=== PATIENT | female | born 1980 | race Caucasian/White ===

== ENCOUNTER 2016-02-24 15:19 | Inpatient (IN) | payer OTHER ==
[~2016-02-24] VITALS: Ht 157.5 cm; Wt 83.4 kg
[2016-02-24] MEDS ORDERED: OLANZapine IM 10 MG VIAL IM ONE (18:45)
[2016-02-24] MEDS ORDERED: MAGNESIUM HYDROXIDE SUSP 30 ML CUP PO PRN (19:00)
[2016-02-24] MEDS ORDERED: LORazepam 1 MG TAB PO PRN (19:00)
[2016-02-24] MEDS ORDERED: LORazepam 2 MG/ML VIAL IM PRN (19:00)
[2016-02-24] MEDS ORDERED: ALUMINUM/MAGNESIUM/SIMETH 30 ML CUP PO PRN (19:00)
[2016-02-24] MEDS ORDERED: ACETAMINOPHEN 325 MG TAB PO PRN (19:00)
[2016-02-25 06:01] VITALS: BP 137/82; PULSE 111; RESP 16; TEMP 97.9; O2SAT 97
[2016-02-25] MEDS: REMOVE OLD NICOTINE PATCH T-DERMAL SCH ×2 (09:00→09:10)
[2016-02-25] MEDS: NICOTINE 21 MG/24 HR PATCH T-DERMAL SCH ×2 (09:00→09:10)
[2016-02-25 15:45] VITALS: BP 126/79; PULSE 112; RESP 16; TEMP 97.2; O2SAT 98
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
[2016-02-25 18:00] VITALS: BP 126/75; PULSE 83; RESP 18; TEMP 98.3; O2SAT 99
[2016-02-25 20:00] VITALS: BP 126/75; PULSE 83; RESP 18; TEMP 97.3
[2016-02-25] MEDS: OLANZapine ODT 5 MG TAB PO SCH (20:36)
[2016-02-26 06:09] VITALS: BP 120/81; PULSE 90; RESP 16; TEMP 97.3
[2016-02-26 07:18] LABS: AUTOMATED NEUTROPHIL # 5.1 TH/MM3 (1.8-7.7); BASOPHIL % 0.6 % (0.0-2.0); EOSINOPHIL % 0.4 % (0.0-4.0); HEMATOCRIT 42.4 % (35.0-46.0); HEMO FLAGS DIFF FINAL; LYMPH % 25.3 % (9.0-44.0); MEAN CELL VOLUME 84.2 FL (80.0-100.0); MEAN CORPUSCULAR HGB CONC 34.4 % (32.0-36.0); MONO % 9.3 % (0.0-8.0); NEUT % 64.4 % (16.0-70.0); PLATELET COUNT 264 TH/MM3 (150-450); RED BLOOD COUNT 5.04 MIL/MM3 (4.00-5.30)
[2016-02-26 07:50] LABS: ALKALINE PHOSPHATASE 84 U/L (45-117); ALT (GPT) 37 U/L (10-53); ANION GAP 10 MEQ/L (5-15); AST (GOT) 7 U/L (15-37); BICARBONATE 24.8 MEQ/L (21.0-32.0); BLOOD UREA NITROGEN 9 MG/DL (7-18); CHLORIDE 106 MEQ/L (98-107); GLOMERULAR FILTRATION RATE 87 ML/MIN (>89); HDL CHOLESTEROL 58.6 MG/DL (40.0-60.0); LDL CHOLESTEROL 44 MG/DL (0-99); POTASSIUM 3.5 MEQ/L (3.5-5.1); SODIUM (NA) 141 MEQ/L (136-145); TOTAL BILIRUBIN ADULT 0.3 MG/DL (0.2-1.0)
[2016-02-26 07:52] LABS: CREATINE KINASE 64 U/L (26-192)
[2016-02-26 08:14] LABS: FREE T4 1.16 NG/DL (0.76-1.46)
[2016-02-26] MEDS: REMOVE OLD NICOTINE PATCH T-DERMAL SCH (10:02)
[2016-02-26 10:03] LABS: RAPID PLASMA REAGIN SCREEN NON-REACTIVE (NON-REACTVE)
[2016-02-26 14:16] LABS: AMPHETAMINE, URINE NEG (NEG); BARBITURATES, URINE NEG (NEG); COCAINE, URINE NEG (NEG)
[2016-02-26 16:15] LABS: HEMOGLOBIN A1a 0.6 %; HEMOGLOBIN A1b 1.5 %; HEMOGLOBIN Ao 86.7 %; HEMOGLOBIN LA1C 1.8 %; HEMOGLOBIN P3 3.4 %
[2016-02-26 18:00] VITALS: BP 135/77; PULSE 111; RESP 18; TEMP 98; O2SAT 96
[2016-02-26] MEDS ORDERED: TEMAZEPAM 15 MG CAP PO PRN (19:45)
[2016-02-26] MEDS: DIVALPROEX SODIUM E.R. 250 MG TAB PO SCH (21:00)
[2016-02-26] MEDS: OLANZapine ODT 5 MG TAB PO SCH (21:32)
[2016-02-27 05:55] VITALS: BP 114/61; PULSE 84; RESP 16; TEMP 97.9
[2016-02-27] MEDS: NICOTINE 21 MG/24 HR PATCH T-DERMAL SCH (09:00)
[2016-02-27 12:27] LABS: ANA SCREEN NEG (NEG)
[2016-02-27 18:46] VITALS: BP 122/76; PULSE 95; RESP 16; O2SAT 100
[2016-02-27] MEDS: DIVALPROEX SODIUM E.R. 250 MG TAB PO SCH (20:56)
[2016-02-27] MEDS: OLANZapine ODT 5 MG TAB PO SCH (20:56)
[2016-02-28 05:39] VITALS: BP 118/76; PULSE 99; RESP 16; TEMP 97.9
[2016-02-28] MEDS: NICOTINE 21 MG/24 HR PATCH T-DERMAL SCH (08:33)
[2016-02-28] MEDS: REMOVE OLD NICOTINE PATCH T-DERMAL SCH (08:33)
[2016-02-28] MEDS: DIVALPROEX SODIUM E.R. 250 MG TAB PO SCH (20:24)
[2016-02-28] MEDS: OLANZapine ODT 5 MG TAB PO SCH (20:24)
[2016-02-28 21:47] VITALS: PULSE 107; RESP 16; O2SAT 98
[2016-02-29 05:30] VITALS: BP 102/56; PULSE 64; RESP 18; TEMP 98; O2SAT 98
[2016-02-29] MEDS: NICOTINE 21 MG/24 HR PATCH T-DERMAL SCH (09:00)
[2016-02-29] MEDS: REMOVE OLD NICOTINE PATCH T-DERMAL SCH (09:00)
[2016-02-29] MEDS ORDERED: DIVA250ER PO (14:11)
[2016-02-29] MEDS ORDERED: OLANZ5 PO (14:11)
[2016-02-29] MEDS: DIVALPROEX SODIUM E.R. 250 MG TAB PO SCH (20:19)
[2016-02-29] MEDS: OLANZapine ODT 5 MG TAB PO SCH (20:19)
[2016-02-29 21:00] VITALS: BP 121/73; PULSE 79; TEMP 98.3; O2SAT 98
[2016-03-01 05:15] VITALS: BP 105/56; PULSE 85; RESP 16; TEMP 97.6
[2016-03-01] MEDS: NICOTINE 21 MG/24 HR PATCH T-DERMAL SCH (09:00)
[2016-03-01] MEDS: REMOVE OLD NICOTINE PATCH T-DERMAL SCH (09:00)
[2016-03-01 10:30] LABS: AUTOMATED NEUTROPHIL # 3.4 TH/MM3 (1.8-7.7); BASOPHIL % 0.8 % (0.0-2.0); EOSINOPHIL % 0.7 % (0.0-4.0); HEMATOCRIT 42.6 % (35.0-46.0); HEMO FLAGS DIFF FINAL; LYMPH % 32.9 % (9.0-44.0); LYMPHOCYTE # 2.1 TH/MM3 (1.0-4.8); MEAN CORPUSCULAR HEMOGLOBIN 28.7 PG (27.0-34.0); MEAN CORPUSCULAR HGB CONC 33.8 % (32.0-36.0); MONO % 12.2 % (0.0-8.0); NEUT % 53.4 % (16.0-70.0); PLATELET COUNT 316 TH/MM3 (150-450); RED BLOOD COUNT 5.02 MIL/MM3 (4.00-5.30); RED CELL DISTRIBUTION WIDTH 13.1 % (11.6-17.2); WHITE BLOOD COUNT 6.4 TH/MM3 (4.0-11.0)
[2016-03-01 11:05] LABS: ALT (GPT) 37 U/L (10-53); ANION GAP 8 MEQ/L (5-15); AST (GOT) 7 U/L (15-37); BICARBONATE 25.3 MEQ/L (21.0-32.0); BLOOD UREA NITROGEN 7 MG/DL (7-18); CHLORIDE 107 MEQ/L (98-107); GLOMERULAR FILTRATION RATE 81 ML/MIN (>89); POTASSIUM 3.6 MEQ/L (3.5-5.1); SODIUM (NA) 140 MEQ/L (136-145)
[2016-03-01 11:07] LABS: ALKALINE PHOSPHATASE 97 U/L (45-117); TOTAL BILIRUBIN ADULT 0.3 MG/DL (0.2-1.0)
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
[2016-03-03 10:00] LABS: ECSTASY (MDMA) UR NEG (NEG); HEROIN (6-ACETYLMORPHINE) UR NEG (NEG); OBMETHADONE UR NEG (NEG); PHENCYCLIDINE URINE NEG (NEG)
[2016-03-03 10:01] LABS: BATH SALTS (MDPV) UR NEG (NEG); K2 SPICE UR NEG (NEG); OXYCODONE (PERCODAN) NEG (NEG)
== END 2016-03-01 13:58 | disposition home or self-care (01) | DRG 885 ==
LOC: H4EA 15:19 → H260 02-25 15:36
PROVIDERS: ADMIT Psychiatry & Neurology Psychiatry; ATTEND Psychiatry & Neurology Psychiatry
DX: F30.2 Manic episode, severe with psychotic symptoms (principal); F12.20 Cannabis dependence, uncomplicated; F43.10 Post-traumatic stress disorder, unspecified; W19.XXXA Unspecified fall, initial encounter; Y92.000 Kitchen of unspecified non-institutional (private) residence as the place of occurrence of the external cause
CPT/HCPCS: 80053; 80061; 80164; 80307; 82550; 82607; 82746; 83036; 84439; 84443; 85025; 85652; 86038; 86592; G0481